=== PATIENT | female | born 1965 | race Caucasian/White ===

== ENCOUNTER 2023-05-29 09:37 | Outpatient (OUT) | payer BC, SELFPAY ==
--- NOTE | 2023-05-29 09:40 | MM_ITS ---
Patient Name: PHUC SUN MR#: [id number] : 1965 Exam Date: 05/29/2023 Ordering Doctor: Gary Guerrero RADIOLOGY REPORT PROCEDURE: MM TOMOSYNTHESIS SCREENING BI COMPARISON: MG MAMM SCREEN KENDRICK W CAD, 04/24/2016. MG MAMM SCREEN KENDRICK W CAD, 11/21/2018. INDICATIONS: screening Calculator Name NCI Breast Cancer Risk Assessment Tool 5 Year Breast Cancer Risk 1.20% Lifetime Breast Cancer Risk 7.90% Personal Breast Cancer No Personal Ovarian Cancer No Treatments None Family Cancers None LOCATION: [facility] BREAST COMPOSITION: Heterogeneously dense,which may obscure small masses. FINDINGS: DIAGNOSTIC CATEGORY 1--NEGATIVE. NO CHANGE FROM COMPARISON ASSESSMENT. Scattered benign-appearing nodules are present. Scattered benign-appearing calcifications are present. Scattered benign-appearing lymph nodes are present. RIGHT BREAST: No significant suspicious finding. LEFT BREAST: No significant suspicious finding. RECOMMENDATIONS: ROUTINE MAMMOGRAM AND CLINICAL EVALUATION IN 12 MONTHS. PLEASE NOTE: A NORMAL MAMMOGRAM DOES NOT EXCLUDE THE POSSIBILITY OF BREAST CANCER. A CLINICALLY SUSPICIOUS PALPABLE LUMP SHOULD BE BIOPSIED. Dictated by: Ermias Fontanez MD on 05/29/2023 at 11:44 Approved by: Ermias Fontanez MD on 05/29/2023 at 11:47
== END 2023-05-29 09:38 | disposition home or self-care (01) ==
LOC: MAMMO 09:37
PROVIDERS: PCP Family Medicine; Visit Provider Family Medicine
DX: Z12.31 Encounter for screening mammogram for malignant neoplasm of breast (principal)
CPT/HCPCS: 77063; 77067

== ENCOUNTER 2024-05-29 10:43 | Outpatient (OUT) | payer BC, SELFPAY ==
--- NOTE | 2024-05-29 11:14 | MM_ITS ---
Patient Name: PHUC SUN MR#: [id number] : 1965 Exam Date: 05/29/2024 Ordering Doctor: Gary Guerrero RADIOLOGY REPORT PROCEDURE: MM TOMOSYNTHESIS SCREENING BI COMPARISON: MM TOMOSYNTHESIS SCREENING BI, 05/29/2023. MG MAMM SCREEN KENDRICK W CAD, 11/21/2018. MG MAMM SCREEN KENDRICK W CAD, 04/24/2016. MG MAMM KENDRICK SCRN W CAD DIG, 07/29/2013. INDICATIONS: Screening Calculator Name NCI Breast Cancer Risk Assessment Tool 5 Year Breast Cancer Risk 1.30% Lifetime Breast Cancer Risk 7.70% Personal Breast Cancer No Personal Ovarian Cancer No Treatments None Family Cancers None LOCATION: [facility] BREAST COMPOSITION: The breasts are heterogeneously dense,which may obscure small masses. FINDINGS: RIGHT BREAST: No significant suspicious finding. LEFT BREAST: No significant suspicious finding. DIAGNOSTIC CATEGORY 1--NEGATIVE. c RECOMMENDATIONS: ROUTINE MAMMOGRAM AND CLINICAL EVALUATION IN 12 MONTHS. PLEASE NOTE: A NORMAL MAMMOGRAM DOES NOT EXCLUDE THE POSSIBILITY OF BREAST CANCER. A CLINICALLY SUSPICIOUS PALPABLE LUMP SHOULD BE BIOPSIED. Dictated by: Fuentes Hannah DO on 05/29/2024 at 12:42 Approved by: Fuentes Hannah DO on 05/29/2024 at 12:44
== END 2024-05-29 10:44 | disposition home or self-care (01) ==
LOC: MAMMO 10:43
PROVIDERS: PCP Family Medicine; Visit Provider Family Medicine
DX: Z12.31 Encounter for screening mammogram for malignant neoplasm of breast (principal)
CPT/HCPCS: 77063; 77067